=== PATIENT | male | born 1980 | race Caucasian/White ===

== ENCOUNTER → 2018-01-09 | Outpatient (CLI) | payer OTHER ==
--- NOTE | 2018-01-09 21:02 | XR ---
EXAMINATION TYPE: XR orbit detect foreign body DATE OF EXAM: 01/09/2018 COMPARISON: NONE HISTORY: MRI clearance TECHNIQUE: 3 views FINDINGS: There is no evidence of radiopaque foreign body. Orbital margins are intact. Paranasal sinu ses appear normal. IMPRESSION: Negative exam
== END | disposition home or self-care (01) ==
LOC: RADXRMAIN 18:07
PROVIDERS: ATTEND Family Medicine
DX: Z03.89 Encounter for observation for other suspected diseases and conditions ruled out (principal); M25.512 Pain in left shoulder
CPT/HCPCS: 70030

== ENCOUNTER → 2018-01-11 | Outpatient (CLI) | payer OTHER ==
--- NOTE | 2018-01-13 19:23 | MR ---
EXAMINATION TYPE: MR shoulder LT wo con DATE OF EXAM: 01/11/2018 COMPARISON: None HISTORY: Lt shoulder pain/arm numbness TECHNIQUE: Multiplanar, multisequence imaging of the left shoulder is performed without contrast. FINDINGS: Rotator Cuff: Small amount of fluid is within the subacromial bursa. The acromion is downward sloping which can contribute to impingement syndrome. No tendon or muscle retraction is evident. Muscle sign al appears normal couple small subchondral cysts on the posterior humeral head. No definite perforati on is identified. Acromioclavicular Joint: Hypertrophy. There is downward spurring at the acromioclavicular junction wh ich can contribute to impingement syndrome. Glenohumeral Joint: Intact. Labrum: There is some increased signal along the superior glenoid labrum is some internal derangement or a SLAP lesion could be considered. Biceps Tendon: The long head of biceps is in normal location within bicipital groove. Bone marrow signal: No focal abnormal marrow signal is appreciated. Other: No additional significant abnormality is appreciated. IMPRESSION: 1. Small amount of fluid in the subacromial bursa. No signal abnormality through the rotator cuff is evident suggesting moderate supraspinatus tendinosis most likely within the differential. Very small perforation is considered less likely. No complete tear with retraction is evident. 2. Signal abnormality within the superior glenoid labrum may be related to a SLAP lesion or degenerat bruce change.
== END | disposition home or self-care (01) ==
LOC: RADMRIMAIN 19:17
PROVIDERS: ATTEND Family Medicine
DX: R93.7 Abnormal findings on diagnostic imaging of other parts of musculoskeletal system (principal); M25.512 Pain in left shoulder

== ENCOUNTER → 2018-10-18 | Outpatient (CLI) | payer OTHER ==
[2018-10-18 12:37] LABS: Basophils # (A) 0.1 k/uL (0-0.2); Basophils % (A) 1 %; Eosinophils # (A) 0.1 k/uL (0-0.7); Eosinophils % (A) 2 %; HCT 53.3 % (39.0-53.0); HGB 17.5 gm/dL (13.0-17.5); Lymphocytes # (A) 1.9 k/uL (1.0-4.8); Lymphocytes % (A) 35 %; MCHC 32.8 g/dL (31.0-37.0); MCV 88.4 fL (80.0-100.0); Mean Platelet Volume 7.6; Monocytes # (A) 0.4 k/uL (0-1.0); Monocytes % (A) 7 %; Neutrophils # (A) 2.8 k/uL (1.3-7.7); Neutrophils % (A) 52 %; Platelet Count 190 k/uL (150-450); RBC 6.03 m/uL (4.30-5.90); RDW 15.2 % (11.5-15.5); WBC 5.3 k/uL (3.8-10.6)
[2018-10-18 12:44] LABS: Potassium 4.7 mmol/L (3.5-5.1)
== END | disposition home or self-care (01) ==
LOC: LABPAT 11:55
PROVIDERS: ATTEND Orthopaedic Surgery
DX: Z01.812 Encounter for preprocedural laboratory examination (principal); M75.42 Impingement syndrome of left shoulder
CPT/HCPCS: 36415; 80051; 85025

== ENCOUNTER 2018-11-07 05:35 | Day surgery (SDC) | payer OTHER ==
[2018-11-04 10:21] VITALS: BMI 32.8
--- NOTE | 2018-11-06 13:22 | HP ---
HISTORY AND PHYSICAL Surgery is 11/07/2018 Alberto Riley is a 38-year-old patient seen with progressive left shoulder pain. We discussed options for treatment. He elected to proceed with left shoulder arthroscopy. Consent regarding the procedure was obtained. PAST MEDICAL HISTORY: Noncontributory. PAST SURGICAL HISTORY: Ankle surgery . DAILY MEDICATIONS: None. ALLERGIES: None reported. SOCIAL HISTORY: Denies tobacco use. PHYSICAL EXAMINATION: PHYSICAL EVALUATION LEFT SHOULDER: Flexion is 90 degrees. Abduction is 90 degrees. External rotation is 40 degrees with pain and weakness. Tenderness along the anterolateral acromion and rotator cuff insertion site. Impingement is positive at 90 degrees. Distal neurovascular exam is intact Left shoulder radiographs revealed a type 2 anterior acromion, a downsloping anterior acromion and acromioclavicular joint osteoarthritis. Left shoulder MRI revealed a downsloping acromion and rotator cuff , acromioclavicular joint osteoarthritis and possible labral tear. IMPRESSION: Left shoulder impingement with possible labral tear, possible rotator cuff tear and acromioclavicular joint osteoarthritis. PLAN: Left shoulder arthroscopy with subacromial decompression, possible arthroscopic rotator cuff repair probable Maria T procedure and debridement. MMODL / IJN: [id number] /
[2018-11-07] MEDS ORDERED: DEXAMETHASONE SOD PHOSPHATE 10 MG/ML 1 ML VIAL IV ONE (05:48)
[2018-11-07] MEDS ORDERED: ONDANSETRON 4 MG/2 ML VIAL IVP ONE (05:48)
[2018-11-07] MEDS ORDERED: MIDAZOLAM 2 MG/2 ML VIAL IV PRN (05:48)
[2018-11-07] MEDS ORDERED: LACTATED RINGERS 1,000 ML IV SCH (05:48)
[2018-11-07] MEDS ORDERED: HYDROmorphone 0.5 MG/0.5 ML SYRINGE IVP PRN (05:48)
[2018-11-07] MEDS ORDERED: LIDOCAINE 1% 20 ML VIAL (10MG/ML) FOR IV START SQ ONE (06:17)
[2018-11-07] MEDS ORDERED: fentaNYL (PF) 50 MCG/ML 2 ML AMP IV ONE (06:57)
[2018-11-07] MEDS ORDERED: MIDAZOLAM (PF) 2 MG/2 ML VIAL IV ONE (06:57)
[2018-11-07] MEDS ORDERED: SCOPOLAMINE 1.5MG/72HR PATCH TRANSDERM ONE (07:20)
[2018-11-07] MEDS ORDERED: fentaNYL (PF) 50 MCG/ML 2 ML AMP ONE (07:21)
[2018-11-07] MEDS ORDERED: LIDOCAINE 1% INJ 10MG/ML (20 ML MDV) ONE (07:21)
[2018-11-07] MEDS ORDERED: PROPOFOL 10 MG/ML 20 ML VIAL IV ONE (07:21)
[2018-11-07] MEDS ORDERED: MIDAZOLAM 2 MG/2 ML VIAL ONE (07:21)
[2018-11-07] MEDS ORDERED: ROPIVACAINE 5 MG/ML 30 ML VIAL ONE (07:21)
[2018-11-07] MEDS ORDERED: SUCCINYLCHOLINE CHLORIDE 100 MG/5 ML SYR IV ONE (07:21)
--- NOTE | 2018-11-07 09:22 | P.OP ---
Date of Procedure: 11/07/18 Preoperative Diagnosis: Left shoulder impingement Postoperative Diagnosis: 1. Left shoulder rotator cuff tear 2. Left shoulder anterior labral tear 3. Left shoulder impingement Procedure(s) Performed: 1. Left shoulder arthroscopic rotator cuff repair 2. Left shoulder arthroscopic anterior labral repair 3. Left shoulder arthroscopic subacromial decompression Implants: 14.75mm Arthrex swivel lock anchor 12.9mm Arthrex push lock anchor Anesthesia: GETA, regional (Interscalene block/catheter) Surgeon: Parveen Park Privacy Analyst #1: Jason Diaz Estimated Blood Loss (ml): 10 Pathology: none sent Condition: stable Disposition: PACU Indications for Procedure: 38-year-old patient seen with progressive left shoulder pain. After treatment options were discussed with him, he elected to proceed with arthroscopy. Operative Findings: See description of procedure Description of Procedure: Patient underwent an interscalene block/catheter by department of anesthesia for postoperative pain management. The patient was then taken to the operative suite. The patient underwent a general anesthetic by the department of anesthesia. The patient was placed into a lateral position and secured. There was appropriate padding of the bony prominence. Left shoulder was then prepped and draped in normal sterile orthopedic fashion. We placed the extremity in 10 pounds of longitudinal traction. A posterior incision was now made for a posterior working portal site. The trocar and cannula were inserted into the glenohumeral joint. Arthroscopy was initiated. Spinal needle was now inserted anteriorly, to ascertain the anterior working portal site. An incision was now made in that area, a trocar was inserted followed by a probe. There was a anterior labral tear present. There was superficial fraying of the superior labrum with no complete tear present. Biceps tendon was intact. The glenohumeral joint revealed mild early chondromalacia changes. The posterior and inferior labrum were intact. I now introduced a catheter, anterior portal site. I now debrided that labral tear down to stable tissue. I now abraded the anterior glenoid with a motorized bur. I now passed labral tape through the blade of the anterior labrum. I held the drill guide in position and Ricardo LOPEZ drill the co pilot hole for our labral anchor insertion. We now open a Arthrex 2.9 mm push lock anchor. The labral tape was now passed through the eyelet. The eye was now introduced to her pre-punch hole. I held that eyelet in position on the chelsea LOPEZ tension the sutures and now introduced the push lock anchor. It had good bite and purchase. The residual suture limbs were clipped. We had a good stable anterior labral repair at this point. I debrided the superior labral fraying down to stable tissue. The labral repair was now probed and found to be stable. Instruments and cannula were now removed. Utilizing the posterior working portal site, the trocar and cannula were inserted into the subacromial space. Arthroscopy initiated. I made an incision 2 fingerbreadths lateral to the acromion. I introduced my trocar followed by my ArthroCare ablator. I now began ablating thick subacromial bursal tissue, which exposed the undersurface of the anterior acromion. There was diminished subacromial space. There was a very prominent anterior acromion. A motorized bur was introduced and a subacromial decompression was performed. I also excised some osteophytes off the inferior aspect of the distal clavicle. The AC joint was visualized and noted to be moderately arthritic. I did not think enough toward a Maria T procedure. I now noted some superficial tearing of the rotator cuff tendon. Upon probing the area there was a full-thickness perforation along the distal supraspinatus midbody area. I used a motorized shaver to get down to stable tendon tissue. I used a motorized bur to abrade the footprint. I now passed 2 everted mattress sutures through good bites of rotator cuff tendon. I now punched a hole for anchor insertion into our abraded footprint area. I now chose a Arthrex 4.75 swivel lock anchor. The suture limbs were passed through the eyelet. The eyelet was introduced into her pre-punch hole. I held the eyelet in position along the chelsea LOPEZ tension the sutures and introduced our anchor. We noted good purchase of the anchor. This did compress the tendon along the footprint. All residual suture limbs were now clipped. We had good compression of the tendon along the footprint. I injected 1 mL Renyte intra- articular. Instruments now removed from the portal sites. All portal sites were approximated with nylon suture. Sterile dressings were applied followed by a shoulder immobilizer. Jason LOPEZ assisted in this complex case. The patient was awakened, transferred to a bed, and taken to recovery in stable condition.
[2018-11-07 09:25] VITALS: TEMP 97.2
[2018-11-07] MEDS ORDERED: ROPIVACAINE 0.2%-NS ON-Q PUMP 1,090 MG, EMPTY PAIN BALL 1 EACH MISCELLANE PRN (09:26)
--- NOTE | 2018-11-07 09:29 | P.ANPRN ---
Procedure Note - Anesthesia - Nerve Block Performed Left Interscalene Infusion Time Out Performed: Yes Date of Procedure: 11/07/18 Procedure Start Time: 06:56 Procedure Stop Time: 07:07 Location of Patient Procedure: PreOp Indication: Acute Post-Operative Pain, Requested by physician Sedation Type: Sedate with meaningful contact maintained Preparation: Sterile Prep, Sterile Dressing Position: Sitting Catheter Depth at Skin (cm): 5 Catheter: Indwelling Needle Types: On-Q Needle Gauge: 18 Technique: Ultrasound Injectate: 0.5% Ropivacaine (see comment for volume) (20 ml)
[2018-11-07 10:11] VITALS: RESP 18
[2018-11-07 11:39] VITALS: BP 129/86; PULSE 64
== END 2018-11-07 11:50 | disposition home or self-care (01) ==
LOC: OR 05:35
PROVIDERS: ATTEND Orthopaedic Surgery
DX: M75.102 Unspecified rotator cuff tear or rupture of left shoulder, not specified as traumatic (principal); S43.432A Superior glenoid labrum lesion of left shoulder, initial encounter; X58.XXXA Exposure to other specified factors, initial encounter; M75.42 Impingement syndrome of left shoulder; M94.212 Chondromalacia, left shoulder; M25.712 Osteophyte, left shoulder
CPT/HCPCS: 64415; 29826; 29827; C1713 ×3; C1765; J2250 ×2; J1100; J0690; J2405; J2001; J3010; J2795; J0330; J2704

== ENCOUNTER → 2019-02-07 | Outpatient (CLI) | payer OTHER ==
[2019-02-07 15:06] LABS: Basophils % (A) 1 %; Eosinophils # (A) 0.2 k/uL (0-0.7); Eosinophils % (A) 3 %; HCT 47.4 % (39.0-53.0); Lymphocytes # (A) 2.1 k/uL (1.0-4.8); Lymphocytes % (A) 32 %; MCHC 33.7 g/dL (31.0-37.0); MCV 91.8 fL (80.0-100.0); Mean Platelet Volume 6.7; Monocytes # (A) 0.4 k/uL (0-1.0); Monocytes % (A) 6 %; Neutrophils # (A) 3.7 k/uL (1.3-7.7); Neutrophils % (A) 56 %; Platelet Count 230 k/uL (150-450); RBC 5.16 m/uL (4.30-5.90); RDW 13.4 % (11.5-15.5); WBC 6.6 k/uL (3.8-10.6)
[2019-02-07 16:14] LABS: Erythrocyte Sedimentation Rate 8 mm/hr (0-15)
[2019-02-07 18:26] LABS: African American GFR (CKD) 99.6 (60.0-200.0); Albumin 4.3 g/dL (3.80-4.90); Albumin/Globulin Ratio 2.05 (1.60-3.17); Anion Gap 7.4 mmol/L (4.00-12.00); BUN/Creat Ratio 17.27 Ratio (12.00-20.00); C Reactive Protein 0.4 mg/dL (0.0-0.8); Calcium 9.2 mg/dL (8.7-10.3); Carbon Dioxide 25.6 mmol/L (21.6-31.8); Globulin 2.1 g/dL (1.6-3.3); Potassium 4.6 mmol/L (3.5-5.5); Total Bilirubin 0.8 mg/dL (0.3-1.2); Total Protein 6.4 g/dL (6.2-8.2)
== END ==
LOC: LABWHC1 14:17
PROVIDERS: ATTEND Internal Medicine
DX: K51.20 Ulcerative (chronic) proctitis without complications (principal)
CPT/HCPCS: 36415; 80053; 82306; 85025; 85652; 86140

== ENCOUNTER → 2019-05-23 | Outpatient (CLI) | payer OTHER ==
[2019-05-23 16:29] LABS: Basophils # (A) 0.1 k/uL (0-0.2); Basophils % (A) 1 %; Eosinophils # (A) 0.2 k/uL (0-0.7); Eosinophils % (A) 3 %; HCT 50.9 % (39.0-53.0); HGB 16.7 gm/dL (13.0-17.5); Lymphocytes # (A) 1.8 k/uL (1.0-4.8); Lymphocytes % (A) 26 %; MCH 27.5 pg (25.0-35.0); MCHC 32.7 g/dL (31.0-37.0); Mean Platelet Volume 8.2; Monocytes # (A) 0.5 k/uL (0-1.0); Monocytes % (A) 7 %; Neutrophils # (A) 4.4 k/uL (1.3-7.7); Neutrophils % (A) 61 %; Platelet Count 239 k/uL (150-450); RBC 6.06 m/uL (4.30-5.90); RDW 13.6 % (11.5-15.5); WBC 7.2 k/uL (3.8-10.6)
[2019-05-23 17:11] LABS: Erythrocyte Sedimentation Rate 8 mm/hr (0-15)
[2019-05-24 00:49] LABS: ALT 44 U/L (10-49); AST 42 U/L (14-35); African American GFR (CKD) 74.4 (60.0-200.0); Albumin/Globulin Ratio 1.96 (1.60-3.17); Alkaline Phosphatase 68 U/L (41-126); C Reactive Protein <0.4 mg/dL (0.0-0.8); Calcium 9.2 mg/dL (8.7-10.3); Carbon Dioxide 26.9 mmol/L (21.6-31.8); Chloride 104 mmol/L (96-109); Globulin 2.3 g/dL (1.6-3.3); Glucose 93 mg/dL (70-110); Non-African American GFR(CKD) 64.2 (60.0-200.0); Potassium 4.3 mmol/L (3.5-5.5); Sodium 140 mmol/L (135-145); Total Bilirubin 1.1 mg/dL (0.3-1.2); Total Protein 6.8 g/dL (6.2-8.2)
[2019-05-24 00:57] LABS: Hepatitis B Surface AB- Quant 3.5 mIU/mL; Hepatitis B Surface Antibody Non-Reactive (Non-Reactive); Hepatitis B Surface Antigen Non-Reactive (Non-Reactive)
== END | disposition home or self-care (01) ==
LOC: LABWHC1 15:15
PROVIDERS: ATTEND Internal Medicine
DX: K51.90 Ulcerative colitis, unspecified, without complications (principal)
CPT/HCPCS: 36415; 80053; 82306; 85025; 85652; 86140; 86480; 86704; 86706; 87340

== ENCOUNTER 2019-06-04 06:28 | Emergency (ER) | payer OTHER ==
[2019-06-04 06:38] VITALS: RESP 18; TEMP 98.6
[2019-06-04] MEDS ORDERED: SODIUM CHLORIDE 0.9% 500 ML 500 ML IV STA (06:57)
[2019-06-04] MEDS ORDERED: MORPHINE SULFATE 4 MG/ML SYRINGE IVP STA (07:34)
[2019-06-04] MEDS ORDERED: ASPIRIN 81 MG PO STA (07:34)
--- NOTE | 2019-06-04 07:41 | ED ---
General Adult HPI - General Chief complaint: Chest Pain Stated complaint: Chest Pain Time Seen by Provider: 06/04/19 06:45 Source: patient, RN notes reviewed Mode of arrival: ambulatory Limitations: no limitations - History of Present Illness Initial comments: 48-year-old male presents to the emergency department for a chief complaint of chest pain. Patient states he has had left-sided chest pain for the past 4 days. Patient states he noticed this when he was leaving the gym. Patient states that pain worsens with taking a deep breath. States that pain gets better when he holds pressure over the area on the left side of the chest. He does not feel short of breath but does have pain upon deep inspiration. Patient denies cough. Denies any recent travel. Denies any swelling or pain in the calves or legs. Denies any history of blood clots. Patient denies any cardiac history.Patient has no other complaints at this time including shortness of breath, abdominal pain, nausea or vomiting, headache, or visual changes. - Related Data Home Medications Medication Instructions Recorded Confirmed [place]-3 Fatty Acids/Fish Oil [Fish 1 cap PO TID 06/04/19 06/04/19 Oil 1,000 mg Softgel] Allergies Allergy/AdvReac Type Severity Reaction Status Date / Time mesalamine Allergy Rash/Hives Verified 06/04/19 07:59 niacin Allergy Rash/Hives Verified 06/04/19 07:59 Review of Systems ROS Statement: Those systems with pertinent positive or pertinent negative responses have been documented in the HPI. ROS Other: All systems not noted in ROS Statement are negative. Past Medical History Past Medical History: Asthma History of Any Multi-Drug Resistant Organisms: None Reported Additional Past Surgical History / Comment(s): left shoulder surgery Past Psychological History: No Psychological Hx Reported Smoking Status: Never smoker Past Alcohol Use History: None Reported Past Drug Use History: None Reported General Exam Limitations: no limitations General appearance: alert, in no apparent distress Head exam: Present: atraumatic, normocephalic, normal inspection Eye exam: Present: normal appearance, PERRL, EOMI. Absent: scleral icterus, conjunctival injection, periorbital swelling ENT exam: Present: normal exam, mucous membranes moist Neck exam: Present: normal inspection, full ROM. Absent: tenderness, meningismus, lymphadenopathy Respiratory exam: Present: normal lung sounds bilaterally. Absent: respiratory distress, wheezes, rales, rhonchi, stridor Cardiovascular Exam: Present: regular rate, normal rhythm, normal heart sounds. Absent: systolic murmur, diastolic murmur, rubs, gallop, clicks GI/Abdominal exam: Present: soft, normal bowel sounds. Absent: distended, tenderness, guarding, rebound, rigid Neurological exam: Present: alert Course Vital Signs 06/04/19 06/04/19 06:36 08:00 Temperature 98.6 F Pulse Rate 78 80 Respiratory 18 18 Rate Blood Pressure 149/79 127/67 O2 Sat by Pulse 98 Oximetry EKG Findings - EKG Comments: EKG Findings:: Normal sinus rhythm, ventricular rate 70, SD interval 126, QTc 399 Medical Decision Making - Medical Decision Making Vitals are stable. Patient states he has pain when breathing. This happened after he worked out at the gym. Patient states that pressing on the left anterior chest where the pain is improved his pain and allows him to take a deep breath. EKG showed a normal sinus rhythm without evidence of ST elevation or depression. CBC CMP unremarkable. Troponin negative. D-dimer is within normal limits. Chest x-ray shows no acute pulmonary process. I suspect this is secondary to a musculoskeletal cause given improvement when splinting the area. Patient was given pain medication which did help significantly. Patient will follow up with primary care. He will return with any worsening symptoms. Discussed case with Dr Benoit - Lab Data Result diagrams: 06/04/19 07:22 06/04/19 07:22 Lab Results 06/04/19 06/04/19 06/04/19 Range/Units 07:22 07:22 07:22 WBC 7.3 (3.8-10.6) k/uL RBC 6.06 H (4.30-5.90) m/uL Hgb 16.2 (13.0-17.5) gm/dL Hct 49.9 (39.0-53.0) % MCV 82.3 (80.0-100.0) fL MCH 26.7 (25.0-35.0) pg MCHC 32.4 (31.0-37.0) g/dL RDW 14.3 (11.5-15.5) % Plt Count 210 (150-450) k/uL Neutrophils % 72 % Lymphocytes % 18 % Monocytes % 7 % Eosinophils % 2 % Basophils % 0 % Neutrophils # 5.2 (1.3-7.7) k/uL Lymphocytes # 1.3 (1.0-4.8) k/uL Monocytes # 0.5 (0-1.0) k/uL Eosinophils # 0.1 (0-0.7) k/uL Basophils # 0.0 (0-0.2) k/uL PT 10.2 (9.0-12.0) sec INR 1.0 (<1.2) APTT 25.0 (22.0-30.0) sec D-Dimer 0.27 (<0.60) mg/L FEU Sodium 138 (137-145) mmol/L Potassium 4.5 (3.5-5.1) mmol/L Chloride 106 (98-107) mmol/L Carbon Dioxide 25 (22-30) mmol/L Anion Gap 7 mmol/L BUN 17 (9-20) mg/dL Creatinine 1.13 (0.66-1.25) mg/dL Est GFR (CKD-EPI)AfAm >90 (>60 ml/min/1.73 sqM) Est GFR (CKD-EPI)NonAf 84 (>60 ml/min/1.73 sqM) Glucose 108 H (74-99) mg/dL Calcium 9.1 (8.4-10.2) mg/dL Magnesium 1.6 (1.6-2.3) mg/dL Total Bilirubin 0.9 (0.2-1.3) mg/dL AST 43 (17-59) U/L ALT 42 (4-49) U/L Alkaline Phosphatase 53 (38-126) U/L Troponin I (0.000-0.034) ng/mL Total Protein 7.1 (6.3-8.2) g/dL Albumin 4.0 (3.5-5.0) g/dL 06/04/19 Range/Units 07:22 WBC (3.8-10.6) k/uL RBC (4.30-5.90) m/uL Hgb (13.0-17.5) gm/dL Hct (39.0-53.0) % MCV (80.0-100.0) fL MCH (25.0-35.0) pg MCHC (31.0-37.0) g/dL RDW (11.5-15.5) % Plt Count (150-450) k/uL Neutrophils % % Lymphocytes % % Monocytes % % Eosinophils % % Basophils % % Neutrophils # (1.3-7.7) k/uL Lymphocytes # (1.0-4.8) k/uL Monocytes # (0-1.0) k/uL Eosinophils # (0-0.7) k/uL Basophils # (0-0.2) k/uL PT (9.0-12.0) sec INR (<1.2) APTT (22.0-30.0) sec D-Dimer (<0.60) mg/L FEU Sodium (137-145) mmol/L Potassium (3.5-5.1) mmol/L Chloride (98-107) mmol/L Carbon Dioxide (22-30) mmol/L Anion Gap mmol/L BUN (9-20) mg/dL Creatinine (0.66-1.25) mg/dL Est GFR (CKD-EPI)AfAm (>60 ml/min/1.73 sqM) Est GFR (CKD-EPI)NonAf (>60 ml/min/1.73 sqM) Glucose (74-99) mg/dL Calcium (8.4-10.2) mg/dL Magnesium (1.6-2.3) mg/dL Total Bilirubin (0.2-1.3) mg/dL AST (17-59) U/L ALT (4-49) U/L Alkaline Phosphatase (38-126) U/L Troponin I <0.012 (0.000-0.034) ng/mL Total Protein (6.3-8.2) g/dL Albumin (3.5-5.0) g/dL Disposition Clinical Impression: Atypical chest pain Disposition: HOME SELF-CARE Condition: Good Instructions (If sedation given, give patient instructions): Chest Pain (ED), Costochondritis (ED) Additional Instructions: Please take Motrin and Tylenol for pain. Please follow-up with primary care in 1-2 days. Return to the emergency Department if you have any worsening symptoms. Is patient prescribed a controlled substance at d/c from ED?: No Referrals: Ivory Callaway MD [STAFF PHYSICIAN] - 1-2 days Time of Disposition: 08:25
[2019-06-04 07:48] LABS: ALT 42 U/L (4-49); AST 43 U/L (17-59); African American GFR (CKD) >90 (>60 ml/min/1.73 sqM); Alkaline Phosphatase 53 U/L (38-126); Anion Gap 7 mmol/L; Blood Urea Nitrogen 17 mg/dL (9-20); Calcium 9.1 mg/dL (8.4-10.2); Carbon Dioxide 25 mmol/L (22-30); Chloride 106 mmol/L (98-107); Glucose 108 mg/dL (74-99); Magnesium 1.6 mg/dL (1.6-2.3); Non-African American GFR(CKD) 84 (>60 ml/min/1.73 sqM); Potassium 4.5 mmol/L (3.5-5.1); Sodium 138 mmol/L (137-145); Total Bilirubin 0.9 mg/dL (0.2-1.3); Total Protein 7.1 g/dL (6.3-8.2)
[2019-06-04 08:01] LABS: Basophils % (A) 0 %; Eosinophils # (A) 0.1 k/uL (0-0.7); Eosinophils % (A) 2 %; HCT 49.9 % (39.0-53.0); HGB 16.2 gm/dL (13.0-17.5); Lymphocytes # (A) 1.3 k/uL (1.0-4.8); Lymphocytes % (A) 18 %; MCH 26.7 pg (25.0-35.0); MCHC 32.4 g/dL (31.0-37.0); MCV 82.3 fL (80.0-100.0); Mean Platelet Volume 8.1; Monocytes # (A) 0.5 k/uL (0-1.0); Monocytes % (A) 7 %; Neutrophils # (A) 5.2 k/uL (1.3-7.7); Neutrophils % (A) 72 %; Platelet Count 210 k/uL (150-450); RBC 6.06 m/uL (4.30-5.90); RDW 14.3 % (11.5-15.5); WBC 7.3 k/uL (3.8-10.6)
--- NOTE | 2019-06-04 08:06 | XR ---
EXAMINATION TYPE: XR chest 2V DATE OF EXAM: 06/04/2019 COMPARISON: None INDICATION: Chest pain on the left rib pain TECHNIQUE: Frontal and lateral views of the chest are obtained. FINDINGS: The heart size is normal. The pulmonary vasculature is normal. The lungs are clear. No pneumothorax is evident. Osseous structures appear normal IMPRESSION: 1. No acute pulmonary process.
[2019-06-04 08:11] LABS: D-Dimer 0.27 mg/L FEU (<0.60); Prothrombin Time 10.2 sec (9.0-12.0)
[2019-06-04] MEDS ORDERED: KETOROLAC 30 MG/ML 1 ML VIAL IVP STA (08:26)
[2019-06-04 08:50] VITALS: BP 104/59; PULSE 64
== END 2019-06-04 08:50 | disposition home or self-care (01) ==
LOC: EC 06:28 → MERGE 06:28 → EC 08:50
DX: R07.89 Other chest pain (principal); Z88.8 Allergy status to other drugs, medicaments and biological substances
CPT/HCPCS: 36415; 93005; 85379; 80053; 83735; 84484; 85025; 85610; 85730; 71046; 99285; 96374; 96375; J2270; J1885

== ENCOUNTER → 2019-12-15 | Outpatient (CLI) | payer OTHER | END | disposition home or self-care (01) | LOC: LABWHC1 12:46 | PROVIDERS: ATTEND Internal Medicine | DX: K51.90 Ulcerative colitis, unspecified, without complications (principal) | CPT/HCPCS: 36415; 82542; 82657 ==

== ENCOUNTER 2021-09-23 08:04 | Day surgery (SDC) | payer BC ==
[2021-09-21 15:29] VITALS: BMI 30.9
[~2021-09-23 08:04] MED LIST: LACTATED RINGERS 1,000 ML IV SCH; LIDOCAINE 1% (10MG/ML) FOR IV START INTRADERMA PRN
[2021-09-23 08:55] VITALS: TEMP 97.7
[2021-09-23] MEDS ORDERED: PROPOFOL 10 MG/ML 20 ML VIAL IV ONE (09:48)
[2021-09-23] MEDS ORDERED: LIDOCAINE 2% INJ 20 MG/ML (2 ML VIAL) ONE (09:48)
[2021-09-23] MEDS ORDERED: MIDAZOLAM 2 MG/2 ML VIAL ONE (09:48)
--- NOTE | 2021-09-23 10:13 | P.PCN ---
Date of Procedure: 09/23/21 Procedure(s) Performed: BRIEF HISTORY: Patient is a 41-year-old pleasant white male scheduled for an elective colonoscopy as a part of long-standing history of ulcerative colitis diagnosed in 2012. He is currently maintained on Humira every 2 weeks centimeters in clinical remission. PROCEDURE PERFORMED: Colonoscopy with random biopsy. PREOPERATIVE DIAGNOSIS: Normal-appearing history of ulcerative colitis diagnosed in 2012. IV sedation per Anesthesia. PROCEDURE: After informed consent was obtained, the patient, was brought into the endoscopy unit. IV sedation was administered by Anesthesia under continuous monitoring. Digital rectal examination was normal. Initially the Olympus CF-160 flexible video colonoscope was then inserted in the rectum, gradually advanced into the cecum without any difficulty. Careful examination was performed as the scope was gradually being withdrawn. Ileocecal valve and the appendiceal orifice were visualized and appeared normal. Prep was excellent. Mucosa of the cecum, ascending colon, transverse colon, descending colon, sigmoid colon, and rectum appeared normal. Biopsies were done from the cecum to rule out dysplasia. Retroflexion was performed in the rectum and all internal hemorrhoids were seen. The patient tolerated the procedure well. IMPRESSION: Normal-appearing colon from rectum to cecum with no evidence of active colitis or colorectal neoplasia . Small internal hemorrhoids. RECOMMENDATIONS: Findings of this examination were discussed with the patient as well as his family. He was advised to follow with the biopsy results. If there is evidence of dysplasia he can have a repeat colonoscopy in 2 years..
[2021-09-23 10:22] VITALS: PULSE 64
[2021-09-23 11:11] VITALS: BP 133/70; RESP 20
== END 2021-09-23 11:05 | disposition home or self-care (01) ==
LOC: ORWHC2ENDO 08:04
PROVIDERS: ATTEND Internal Medicine Gastroenterology
DX: K51.90 Ulcerative colitis, unspecified, without complications (principal); K64.8 Other hemorrhoids; Z79.1 Long term (current) use of non-steroidal anti-inflammatories (NSAID); Z88.8 Allergy status to other drugs, medicaments and biological substances; Z79.890 Hormone replacement therapy
CPT/HCPCS: 88305; 45380; J2250; J2704; J2001

== ENCOUNTER → 2021-11-07 | Outpatient (CLI) | payer BC ==
[2021-11-07 15:38] LABS: Basophils # (A) 0.04 X 10*3/uL (0.00-0.10); Basophils % (A) 0.6 %; Eosinophils # (A) 0.21 X 10*3/uL (0.04-0.35); Eosinophils % (A) 3.2 %; HCT 51.3 % (39.6-50.0); HGB 17.5 g/dL (13.0-17.0); Immature Grans, Automated 0.5 %; Lymphocytes # (A) 2.15 X 10*3/uL (0.90-5.00); MCHC 34.1 g/dL (32.0-37.0); MCV 87.8 fL (80.0-97.0); Mean Platelet Volume 10.6 fL (9.5-12.2); Monocytes # (A) 0.61 X 10*3/uL (0.20-1.00); Monocytes % (A) 9.4 %; NRBC Per 100 WBC 0 /100 WBCS (0.0-0.0); Neutrophils # (A) 3.48 X 10*3/uL (1.80-7.70); Neutrophils % (A) 53.3 %; Platelet Count 214 X 10*3/uL (140-440); RBC 5.84 X 10*6/uL (4.40-5.60); RDW 12.6 % (11.5-14.5); WBC 6.52 X 10*3/uL (4.50-10.00)
[2021-11-07 16:05] LABS: Anion Gap 11.4 mmol/L (10.00-18.00); Potassium 4.1 mmol/L (3.5-5.5)
== END | disposition home or self-care (01) ==
LOC: LABPAT 09:01
PROVIDERS: ATTEND Orthopaedic Surgery Hand Surgery
DX: Z01.812 Encounter for preprocedural laboratory examination (principal); G56.01 Carpal tunnel syndrome, right upper limb
CPT/HCPCS: 80051; 85025

== ENCOUNTER 2021-11-09 12:20 | Day surgery (SDC) | payer BC ==
--- NOTE | 2021-11-07 09:38 | P.HPOR ---
History of Present Illness H&P Date: 11/07/21 Chief Complaint: Right carpal tunnel syndrome ubjective: This is a 41 year old male that presents today for initial evaluation regarding a several year history of worsening thumb index and middle finger paresthesias. He works as a second class welder and states his right hand is worse than the left. He has symptoms that wake him from sleep at night. He has tried night splinting which no longer provides relief. He also has left lateral elbow pain that radiates luís n the dorsal forearm that is worse with wrist extension. He denies any injury or inciting event and likes to power lift. Physical Examination: RUE: AIN/PIN/Radial/Ulnar/Median motor intact. Radial/Ulnar/Median SILT. 2+/4 Radial/Ulnar pulses palpated. 5/5 APB, 5/5 FDI. Negative Finkelsteins, negative CMC grind, positive Durkan's compression. LUE: AIN/PIN/Radial/Ulnar/Median motor intact. Radial/Ulnar/Median SILT. 2+/4 Radial/Ulnar pulses palpated. 5/5 APB, 5/5 FDI. Negative Finkelsteins, negative CMC grind, positive Durkan's compression. TTP over ECRB and lateral epicondyle. Pain with resisted wrist extension at lateral epicondyle. Elbow ROM 0-130. Stable to varus/valgus stress. Imaging: X-Rays of the left elbow demonstrate no acute osseous abnormality. Impression: 1.) B/L Carpal tunnel syndrome 2.) Left lateral epicondylitis Plan: Diagnosis and treatment options were discussed with the patient. He as failed conservative treatment for his right carpal tunnel syndrome and would like to proceed with surgical intervention. Risks and benefits of surgery including bleeding, infection, damage to surrounding tissue, need for further surgery, possible need to convert to open procedure, residual numbness were discussed and the patient wished to go forward with surgery. In regard to his left lateral epicondylitis I recommend a wrist splint in combination with a steroid injection and he his agreeable. Written procedural consent was obtained prior to inject ion. A 2cc mixture of 1% Lidocaine and Depomedrol was injected into the area of the lateral epicondyle near the ECRB origin without complication. Band-Aid was placed and the patient tolerated the procedure well. He will be scheduled for a right endoscopic vs open carpal tunnel release in the near future. -Wang Nolasco DO Orthopedic Hand/Upper Extremity Surgeon Past Medical History Past Medical History: Asthma Additional Past Medical History / Comment(s): ULCERATIVE COLITIS History of Any Multi-Drug Resistant Organisms: None Reported Past Surgical History: Orthopedic Surgery Additional Past Surgical History / Comment(s): left shoulder surgery. ORIF LT ANKLE. COLONOSCOPY Past Anesthesia/Blood Transfusion Reactions: No Reported Reaction Smoking Status: Never smoker - Past Family History Mother Family Medical History: No Reported History Medications and Allergies Home Medications Medication Instructions Recorded Confirmed Type Adalimumab [Humira Pen 40 mg SQ Q14D 09/21/21 09/23/21 History Crohn's-Uc-Hs] Lisdexamfetamine Dimesylate 50 mg PO QAM 09/21/21 09/23/21 History [Vyvanse] Testosterone Cypionate 200 mg IM Q14D 09/21/21 09/23/21 History [Depo-Testosterone] Allergies Allergy/AdvReac Type Severity Reaction Status Date / Time mesalamine Allergy Rash/Hives Verified 09/23/21 08:49 niacin Allergy Rash/Hives Verified 09/23/21 08:49 Physical Examination Osteopathic Statement: *. No significant issues noted on an osteopathic structural exam other than those noted in the History and Physical/Consult.
[2021-11-07 15:36] VITALS: BMI 31.1
[~2021-11-09 12:20] MED LIST changes: +Pre Op ABX Message 1 EACH MISC MISCELLANE ONE
[2021-11-09 12:34] VITALS: TEMP 97.9
[2021-11-09] MEDS ORDERED: ONDANSETRON 4 MG/2 ML VIAL ONE (12:36)
[2021-11-09] MEDS ORDERED: DEXAMETHASONE SOD PHOSPHATE 4 MG/ML 1 ML VIAL IVP ONE (12:43)
[2021-11-09] MEDS ORDERED: ONDANSETRON 4 MG/2 ML VIAL IVP ONE (12:43)
[2021-11-09] MEDS ORDERED: BUPIVACAIN-EPI 0.5%-1:200,000 30 ML VIAL SQ ONE ×3 (13:42→13:52)
[2021-11-09] MEDS ORDERED: LIDOCAINE 1% INJ 10MG/ML (20 ML MDV) SQ ONE ×3 (13:42→13:52)
[2021-11-09] MEDS ORDERED: MIDAZOLAM 2 MG/2 ML VIAL ONE (13:44)
[2021-11-09] MEDS ORDERED: PROPOFOL 10 MG/ML 20 ML VIAL IV ONE (13:44)
[2021-11-09] MEDS ORDERED: fentaNYL (PF) 50 MCG/ML 2 ML AMP ONE (13:44)
--- NOTE | 2021-11-09 14:17 | P.OP ---
Date of Procedure: 11/09/21 Preoperative Diagnosis: Right carpal tunnel syndrome Postoperative Diagnosis: Right carpal tunnel syndrome Procedure(s) Performed: Right endoscopic carpal tunnel release Anesthesia: MAC Surgeon: Wang Nolasco Resin Filterer #1: Roger Kearney Estimated Blood Loss (ml): 0 Pathology: none sent Condition: stable Disposition: PACU Description of Procedure: This is a 41 year old male who presents today for a right endoscopic carpal tunnel release after having failed conservative treatment in the past. Risks and benefits of surgery were discussed with the patient including bleeding, damage to surrounding tissue, infection, need to convert to open procedure, need for further surgery as well as risks of anesthesia including pulmonary embolism and even and the patient wished to proceed with surgical intervention. The patients was seen in the pre-operative area by myself. Consent and H&P were completed and updated. The correct extremity was marked in the pre-operative area by myself and all other questions were answered. Operative Narrative: The patient was brought to the operating room by the department of anesthesia. They remained on the portable stretcher and a rolling hand table was brought to the side of the operative extremity. Pre-operative time out was performed indicating the correct patient, procedure and laterality. All in the room agreed. The patient was then drifted off to sleep by the department of anes thesia. MAC anesthesia was utilized and a 50:50 mixture of 1% Lidocaine and 0.5% bupivacaine was injected into the subcutaneous tissues of the palmar skin, 6ccs total. A nonsterile tourniquet was then applied to the operative extremity and the right upper extremity was then prepped and draped in normal sterile fashion. The operative extremity was the exsanguinated with an esmarch bandage and the tourniquet was inflated to 250mmHg. 15 blade scalpel was utilized to make a transverse incision on the palmar skin just ulnar to the palmaris longus tendon at the level of the distal wrist crea se. Ragnell retractor was then placed radially and blunt dissection was performed to reveal the distal forearm fascia. This was lifted with fine Alfredo pick ups and Littler tenotomy scissors were then used to open the forearm fascia transversely and a double skin hook was then placed. Hamate finder was placed into the carpal tunnel and then sequential sized dilators were inserted followed by the synovial elevator to separate the flexor tenosynovium from the undersurface of the transverse carpal ligament and a washboard texture was felt. The MicroAire endoscopic carpal tunnel release system gun was the then inserted into the carpal tunnel hugging the deep portion of the transverse carpal ligament in line with the base of the ring finger. Transverse fibers of the ligament were directly visualized. Pressure was applied on the palm to reveal the distal extent of the transverse carpal ligament. The blade was then deployed and the distal half of the transverse carpal ligament was released. The scope was then brought distal again and remaining transverse fibers were incised with the blade. The proximal half of the transverse carpal ligament was then divided and again the scope was advanced distal and remaining transverse fibers were incised with the blade. The radial and ulnar leaflets were directly visualized and mobile consistent with complete release. Tenotomy scissors were then u tilized to release the remaining distal forearm fascia under direct visualization taking care to preserve the palmar cutaneous branch of the median nerve. Skin closure was performed with interrupted 4-0 Monocryl suture followed by Mastisol and steri strips. Sterile dressing was applied consisting of adaptic, 4x4s, Webril, and an eleni bandage. Tourniquet was let down and the hand immediately was well perfused. The patient was then woken by the department of anesthesia and transferred to PACU in stable condition. Rgoer LOPEZ was present for the case in its entirety and assisted in major portions of the case and protection of vital neurovascular structures. Wang Nolasco D.O. Orthopedic Hand/Upper Extremity Surgeon
[2021-11-09 14:27] VITALS: BP 115/66; PULSE 74; RESP 14
== END 2021-11-09 14:47 | disposition home or self-care (01) ==
LOC: OR 12:20
PROVIDERS: ATTEND Orthopaedic Surgery Hand Surgery
DX: G56.01 Carpal tunnel syndrome, right upper limb (principal); M77.12 Lateral epicondylitis, left elbow; J45.909 Unspecified asthma, uncomplicated; K51.90 Ulcerative colitis, unspecified, without complications; Z98.890 Other specified postprocedural states; Z79.1 Long term (current) use of non-steroidal anti-inflammatories (NSAID); Z79.890 Hormone replacement therapy; Z79.899 Other long term (current) drug therapy; Z88.8 Allergy status to other drugs, medicaments and biological substances
CPT/HCPCS: 29848; J2250; J1100; J2405; J2001; J3010; J2704

== ENCOUNTER 2024-08-18 09:52 | Emergency (ER) | payer BC ==
[2024-08-18 09:56] VITALS: TEMP 97.8
[2024-08-18] MEDS: MORPHINE SULFATE 4 MG/ML SYRINGE IVP STA ×2 (10:30→13:06)
[2024-08-18] MEDS: ONDANSETRON 4 MG/2 ML VIAL IVP STA (10:30)
[2024-08-18] MEDS: SODIUM CHLORIDE 0.9% 1,000 ML IV ONE (10:31)
[2024-08-18 10:39] LABS: Basophils # (A) 0.05 10*3/uL (0.00-0.10); Basophils % (A) 0.7 %; Eosinophils # (A) 0.11 10*3/uL (0.04-0.35); Eosinophils % (A) 1.5 %; HCT 52.1 % (39.6-50.0); HGB 18.9 g/dL (13.0-17.0); Lymphocytes # (A) 2.02 10*3/uL (0.90-5.00); Lymphocytes % (A) 27.7 %; MCH 31.3 pg (27.0-32.0); MCHC 36.3 g/dL (32.0-37.0); MCV 86.4 fL (80.0-97.0); Mean Platelet Volume 9.9 fL (9.5-12.2); Monocytes # (A) 0.66 10*3/uL (0.20-1.00); Monocytes % (A) 9.1 %; Neutrophils # (A) 4.43 10*3/uL (1.80-7.70); Neutrophils % (A) 60.7 %; Platelet Count 230 10*3/uL (140-440); RBC 6.03 10*6/uL (4.40-5.60); WBC 7.29 10*3/uL (4.50-10.00)
[2024-08-18 10:50] LABS: INR 1.1 (<1.2); Partial Thromboplastin Time 24.9 sec (22.0-30.0); Prothrombin Time 11.8 sec (10.0-12.5)
[2024-08-18 10:51] LABS: ALT 70 U/L (4-49); AST 59 U/L (17-59); African American GFR (CKD) >90 (>60 ml/min/1.73 sqM); Albumin 4.3 g/dL (3.5-5.0); Alkaline Phosphatase 53 U/L (38-126); Anion Gap 7 mmol/L; Blood Urea Nitrogen 23 mg/dL (9-20); Calcium 9.3 mg/dL (8.4-10.2); Carbon Dioxide 27 mmol/L (22-30); Chloride 103 mmol/L (98-107); Glucose 102 mg/dL (74-99); Non-African American GFR(CKD) 89 (>60 ml/min/1.73 sqM); Potassium 4.3 mmol/L (3.5-5.1); Sodium 137 mmol/L (137-145); Total Bilirubin 1.8 mg/dL (0.2-1.3); Total Protein 7.2 g/dL (6.3-8.2)
[2024-08-18 11:00] LABS: Appearance,Urine Clear (Clear); Bilirubin,Urine Negative (Negative); Blood,Urine Negative (Negative); Color,Urine Colorless; Glucose,Urine (UA) Negative (Negative); Ketones,Urine Negative (Negative); Leukocyte Esterase,Urine Negative (Negative); Nitrite,Urine Negative (Negative); Protein,Urine Negative (Negative); Specific Gravity,Urine 1.018 (1.001-1.035); Urobilinogen,Urine <2.0 mg/dL (<2.0)
--- NOTE | 2024-08-18 11:01 | US ---
EXAMINATION TYPE: US scrotum with doppler. DATE OF EXAM: 08/18/2024 COMPARISON: NONE CLINICAL INDICATION: Male, 43 years old with history of eval for right testicular torsion; rt testicl e pain, pt states lt testicle feels like its up in his stomach TECHNIQUE: Grayscale, color Doppler and spectral Doppler imaging of the scrotum. FINDINGS: EXAM MEASUREMENTS: TESTICLES: Right Testicle: 3.0x1.5x2.6 cm Calcifications seen within rt testicle, Largest: 1.4mm Left Testicle: 2.9x1.4x2.3 cm Multiple tiny calcifications seen within Lt testicle EPIDIDYMIS HEAD: Right Epididymis: 0.7x0.5x0.6 cm Left Epididymis: 0.7x0.5x0.6 cm Doppler performed to assess for testicular vascularity; slightly minimal bilateral color flow, spectral waveforms are seen. Presence of hydroceles: minimal Presence of varicoceles: None IMPRESSION: 1. No evidence for acute process. 2. No evidence for intratesticular mass or evidence for testicular torsion. 3. Bilateral testicular microlithiasis. [facility], , 08/18/2024 10:58 AM
--- NOTE | 2024-08-18 12:07 | CT ---
EXAMINATION TYPE: CT abdomen pelvis wo con CT DLP: 631.4 mGycm, Automated exposure control for dose reduction was used. DATE OF EXAM: 08/18/2024 11:59 AM COMPARISON: CT pelvis 06/04/2024 CLINICAL INDICATION:Male, 43 years old with history of lower abd/right flank pain with right testicle ; right flank pain and right hand testicular pain TECHNIQUE: Standard CT of the abdomen and pelvis without IV or oral contrast. Lack of IV or oral co ntrast limits evaluation of solid and hollow organ viscera. Coronal and sagittal reformats were perfo rmed. FINDINGS: LOWER CHEST: Unremarkable noncontrast appearance ABDOMEN LIVER: Unremarkable noncontrast appearance GALLBLADDER AND BILE DUCTS: Unremarkable noncontrast appearance PANCREAS: Unremarkable noncontrast appearance SPLEEN: Unremarkable noncontrast appearance ADRENAL GLANDS: Unremarkable noncontrast appearance. KIDNEYS AND URETERS: No evidence of hydronephrosis or renal calculus. Nonspecific minimal bilateral p erinephric fat stranding. PELVIS BLADDER: Unremarkable REPRODUCTIVE: Unremarkable. ABDOMEN & PELVIS STOMACH AND BOWEL: Stomach and duodenum are unremarkable. No focal bowel wall thickening or surroundi ng inflammatory changes. The appendix is not definitely identified however there is no significant in flammatory changes within the right lower quadrant. No evidence of bowel obstruction. PERITONEUM: No evidence of pneumoperitoneum or free fluid. VASCULATURE: No evidence of aortic aneurysm. Few pelvic phleboliths. MUSCULOSKELETAL: No acute osseous abnormalities LYMPH NODES: No gross evidence for lymphadenopathy. SOFT TISSUE/ABDOMINAL WALL: Small left fat filled inguinal hernia with bowel approaching its opening. IMPRESSION: 1. No CT evidence for acute abdominal/pelvic process within limitations of a noncontrast exam. 2. Small fat filled left inguinal hernia with bowel approaching its opening. [facility], , 08/18/2024 12:05 PM
--- NOTE | 2024-08-18 13:17 | ED ---
General Adult HPI - General Chief complaint: Urogenital Stated complaint: swollen testical, pain Time Seen by Provider: 08/18/24 10:10 Source: patient, RN notes reviewed, old records reviewed Mode of arrival: ambulatory Limitations: no limitations - History of Present Illness Initial comments: Patient is a 43-year-old male who presents emergency department with onset of right testicular pain. States it started this morning. States he noticed some swelling around the right testicle as well. Described as 10 out of 10 pain. Did not subside which is why presents for further evaluation. No obvious injury. Does have a history of an inguinal hernia on the left with no complications. States the pain does radiate up into his lower abdomen around his right flank. No hematuria. No concern for STDs. No nausea or vomiting. No other symptoms. Presents for further evaluation at this time. - Related Data Home Medications Medication Instructions Recorded Confirmed Adalimumab [Humira Pen 40 mg SQ Q14D 09/21/21 11/09/21 Crohn's-Uc-Hs] Lisdexamfetamine Dimesylate 50 mg PO QAM 09/21/21 11/09/21 [Vyvanse] Testosterone Cypionate 400 mg IM Q14D 09/21/21 11/09/21 [Depo-Testosterone] Lecithin Oil 1 dose PO DIRECTED 11/07/21 11/09/21 [place]-3/Dha/Epa/Fish Oil [Fish Oil 1 each PO DAILY 11/07/21 11/09/21 1,000 mg Softgel] Saw [place] (Unknown Dose) 1 dose PO DIRECTED 11/07/21 11/09/21 Previous Rx's Medication Instructions Recorded Cyclobenzaprine [Flexeril] 10 mg PO TID PRN 5 Days #15 tab 08/18/24 Doxycycline Hyclate [Doryx] 80 mg PO BID 14 Days #28 tab 08/18/24 Allergies Allergy/AdvReac Type Severity Reaction Status Date / Time mesalamine Allergy Rash/Hives Verified 08/18/24 09:56 niacin Allergy Rash/Hives Verified 08/18/24 09:56 Review of Systems ROS Statement: Those systems with pertinent positive or pertinent negative responses have been documented in the HPI. Review of Systems: CONST: Denies fever EYES: Denies blurry vision ENT: Denies nasal congestion C/V: Denies Chest pain RESP: Denies shortness of breath GI: Denies abdominal pain : Endorses right testicular pain SKIN: Denies rash. MSK: Denies joint pain. NEURO: Denies headache ROS Other: All systems not noted in ROS Statement are negative. Past Medical History Past Medical History: Hypertension Additional Past Medical History / Comment(s): ULCERATIVE COLITIS History of Any Multi-Drug Resistant Organisms: None Reported Past Surgical History: Orthopedic Surgery Additional Past Surgical History / Comment(s): left shoulder surgery. ORIF LT ANKLE. COLONOSCOPY Past Anesthesia/Blood Transfusion Reactions: No Reported Reaction Past Psychological History: ADD/ADHD Smoking Status: Never smoker Past Alcohol Use History: Occasional Past Drug Use History: None Reported - Past Family History Mother Family Medical History: No Reported History General Exam - General Exam Comments Initial Comments: General: Appears in no acute distress. HEAD: Normal with no signs of head trauma. EYES: EOMI ENT: Hearing grossly intact, normal oropharynx. RESPIRATORY: Clear breath sounds bilaterally. No wheezes, rales, or rhonchi. C/V: Regular rate and rhythm. S1 and S2 auscultated, no edema, peripheral pulses 2+ and intact throughout ABD: Abdomen soft, nondistended. Mildly tender to palpation suprapubic and right lower quadrant near the flank. Testicular exam relatively unremarkable. Tenderness of the testicle but no obvious edema or swelling. No obvious mass. EXT: No obvious deformity. SKIN: No rashes or lesions observed on exposed skin. NEURO: Alert and oriented x 4. Limitations: no limitations Course Vital Signs 08/18/24 08/18/24 09:53 13:44 Temperature 97.8 F Pulse Rate 86 84 Respiratory 17 20 Rate Blood Pressure 139/84 134/84 O2 Sat by Pulse 97 97 Oximetry Medical Decision Making - Medical Decision Making Was pt. sent in by a medical professional or institution (, PA, ONLINE MARKETING SPECIALIST, urgent care, hospital, or care home...) When possible be specific @ -No Did you speak to anyone other than the patient for history (EMS, parent, family, police, friend...)? What history was obtained from this source @ -No Did you review nursing and triage notes (agree or disagree)? Why? @ -I reviewed and agree with nursing and triage notes Were old charts reviewed (outside hosp., previous admission, EMS record, old EKG, old radiological studies, urgent care reports/EKG's, care home records)? Report findings @ -No old charts were reviewed Differential Diagnosis (chest pain, altered mental status, abdominal pain women, abdominal pain men, vaginal bleeding, weakness, fever, dyspnea, syncope, headache, dizziness, GI bleed, back pain, seizure, CVA, palpatations, mental health, musculoskeletal)? @ -Testicular torsion, epididymitis, renal stone. This list is not all inclusive. EKG interpreted by me (3pts min.). @ -None done X-rays interpreted by me (1pt min.). @ -None done CT interpreted by me (1pt min.). @ -CT abdomen pelvis negative for any obvious acute process. U/S interpreted by me (1pt. min.). @ -Ultrasound of the scrotum negative for any obvious acute process. What testing was considered but not performed or refused? (CT, X-rays, U/S, labs)? Why? @ -None What meds were considered but not given or refused? Why? @ -None Did you discuss the management of the patient with other professionals (professionals i.e. , PA, ONLINE MARKETING SPECIALIST, lab, RT, psych nurse, social services manager, life scientist, teacher, financial aid officer, correctional case records supervisor)? Give summary @ -Discussed the case with Dr. Okeefe who was in agreement with discharge for follow-up and treatment for epididymitis. Agrees it is unlikely that patient is having right repeated episode of testicular torsion. Was smoking cessation discussed for >3mins.? @ -No Was critical care preformed (if so, how long)? @ -No Were there social determinants of health that impacted care today? How? (Homelessness, low income, unemployed, alcoholism, drug addiction, transportation, low edu. Level, literacy, decrease access to med. care, fpc, rehab)? @ -No Was there de-escalation of care discussed even if they declined (Discuss DNR or withdrawal of care, Hospice)? DNR status @ -No What co-morbidities impacted this encounter? (DM, HTN, Smoking, COPD, CAD, Cancer, CVA, ARF, Chemo, Hep., AIDS, mental health diagnosis, sleep apnea, morbid obesity)? @ -None Was patient admitted / discharged? Hospital course, mention meds given and route, prescriptions, significant lab abnormalities, going to OR and other pertinent info. @ -Presents emergency department for sudden onset right testicular pain. We will evaluate patient with abdominal labs, ultrasound of the scrotum. Patient was in agreement this plan. Exam relatively unremarkable. Some tenderness but no evidence of skin changes or swelling. Vital signs are within acceptable limits. He will be given IV analgesia medications, fluids. Patient was in agreement this plan. Ultrasound shows no evidence of torsion. Laboratory studies are all within acceptable limits. On reevaluation, I did recommend CT imaging due to the lower abdominal pain as well and he was in agreement this plan. He expressed understanding of the workup thus far. CT imaging obtained and showed no obvious acute process. On reevaluation, patient states that when he went to the bathroom the pain occurred again. States that the testicle did retract up into his body and he started having the pain again. I did speak regarding this as well as the overal l case with Dr. Okeefe who agrees it is unlikely to be torsion and can follow-up outpatient. Patient be symptomatically treated with epididymitis. Patient was in agreement this plan. Patient given a dose of Rocephin prior to discharge. I will provide the patient with a prescription for doxycycline, Tylenol 3 starter pack. I instructed the patient to follow up with their PCP in the next 1-3 days. I provided contact information for follow up with urology. I explained that the patient should return to the emergency department if they experience any worsening symptoms. Strict return precautions were discussed with the patient. The patient expressed understanding of these instructions. I an swered all questions that the patient had. The patient was discharged home in good condition with their prescriptions and follow up information. Undiagnosed new problem with uncertain prognosis? @ -No Drug Therapy requiring intensive monitoring for toxicity (Heparin, Nitro, Insulin, Cardizem)? @ -No Were any procedures done? @ -No Diagnosis/symptom? @ -Testicular pain, epididymitis Acute, or Chronic, or Acute on Chronic? @ -Acute Uncomplicated (without systemic symptoms) or Complicated (systemic symptoms)? @ -Uncomplicated Side effects of treatment? @ -No Exacerbation, Progression, or Severe Exacerbation? @ -No Poses a threat to life or bodily function? How? (Chest pain, USA, ID, pneumonia, PE, COPD, DKA, ARF, appy, cholecystitis, CVA, Diverticulitis, Homicidal, Suicidal, threat to staff... and all critical care pts) @ -Unlikely at this time - Lab Data Result diagrams: 08/18/24 10:28 08/18/24 10:36 Lab Results 08/18/24 08/18/24 08/18/24 Range/Units 10:28 10:36 10:36 WBC 7.29 (4.50-10.00) 10*3/uL RBC 6.03 H (4.40-5.60) 10*6/uL Hgb 18.9 H (13.0-17.0) g/dL Hct 52.1 H (39.6-50.0) % MCV 86.4 (80.0-97.0) fL MCH 31.3 (27.0-32.0) pg MCHC 36.3 (32.0-37.0) g/dL Plt Count 230 (140-440) 10*3/uL MPV 9.9 (9.5-12.2) fL Immature Gran % (Auto) 0.3 % Neutrophils % 60.7 % Lymphocytes % 27.7 % Monocytes % 9.1 % Eosinophils % 1.5 % Basophils % 0.7 % Immature Gran # 0.02 (0.00-0.04) 10*3/uL Neutrophils # 4.43 (1.80-7.70) 10*3/uL Lymphocytes # 2.02 (0.90-5.00) 10*3/uL Monocytes # 0.66 (0.20-1.00) 10*3/uL Eosinophils # 0.11 (0.04-0.35) 10*3/uL Basophils # 0.05 (0.00-0.10) 10*3/uL PT 11.8 (10.0-12.5) sec INR 1.1 (<1.2) APTT 24.9 (22.0-30.0) sec Sodium 137 (137-145) mmol/L Potassium 4.3 (3.5-5.1) mmol/L Chloride 103 (98-107) mmol/L Carbon Dioxide 27 (22-30) mmol/L Anion Gap 7 mmol/L BUN 23 H (9-20) mg/dL Creatinine 1.04 (0.66-1.25) mg/dL Est GFR (CKD-EPI)AfAm >90 (>60 ml/min/1.73 sqM) Est GFR (CKD-EPI)NonAf 89 (>60 ml/min/1.73 sqM) Glucose 102 H (74-99) mg/dL Plasma Lactic Acid Jeremi (0.7-2.0) mmol/L Calcium 9.3 (8.4-10.2) mg/dL Total Bilirubin 1.8 H (0.2-1.3) mg/dL AST 59 (17-59) U/L ALT 70 H (4-49) U/L Alkaline Phosphatase 53 (38-126) U/L Total Protein 7.2 (6.3-8.2) g/dL Albumin 4.3 (3.5-5.0) g/dL Urine Color Urine Appearance (Clear) Urine pH (5.0-8.0) Ur Specific [place] (1.001-1.035) Urine Protein (Negative) Urine Glucose (UA) (Negative) Urine Ketones (Negative) Urine Blood (Negative) Urine Nitrite (Negative) Urine Bilirubin (Negative) Urine Urobilinogen (<2.0) mg/dL Ur Leukocyte Esterase (Negative) 08/18/24 08/18/24 Range/Units 10:36 10:53 WBC (4.50-10.00) 10*3/uL RBC (4.40-5.60) 10*6/uL Hgb (13.0-17.0) g/dL Hct (39.6-50.0) % MCV (80.0-97.0) fL MCH (27.0-32.0) pg MCHC (32.0-37.0) g/dL Plt Count (140-440) 10*3/uL MPV (9.5-12.2) fL Immature Gran % (Auto) % Neutrophils % % Lymphocytes % % Monocytes % % Eosinophils % % Basophils % % Immature Gran # (0.00-0.04) 10*3/uL Neutrophils # (1.80-7.70) 10*3/uL Lymphocytes # (0.90-5.00) 10*3/uL Monocytes # (0.20-1.00) 10*3/uL Eosinophils # (0.04-0.35) 10*3/uL Basophils # (0.00-0.10) 10*3/uL PT (10.0-12.5) sec INR (<1.2) APTT (22.0-30.0) sec Sodium (137-145) mmol/L Potassium (3.5-5.1) mmol/L Chloride (98-107) mmol/L Carbon Dioxide (22-30) mmol/L Anion Gap mmol/L BUN (9-20) mg/dL Creatinine (0.66-1.25) mg/dL Est GFR (CKD-EPI)AfAm (>60 ml/min/1.73 sqM) Est GFR (CKD-EPI)NonAf (>60 ml/min/1.73 sqM) Glucose (74-99) mg/dL Plasma Lactic Acid Jeremi 1.0 (0.7-2.0) mmol/L Calcium (8.4-10.2) mg/dL Total Bilirubin (0.2-1.3) mg/dL AST (17-59) U/L ALT (4-49) U/L Alkaline Phosphatase (38-126) U/L Total Protein (6.3-8.2) g/dL Albumin (3.5-5.0) g/dL Urine Color Colorless Urine Appearance Clear (Clear) Urine pH 6.0 (5.0-8.0) Ur Specific [place] 1.018 (1.001-1.035) Urine Protein Negative (Negative) Urine Glucose (UA) Negative (Negative) Urine Ketones Negative (Negative) Urine Blood Negative (Negative) Urine Nitrite Negative (Negative) Urine Bilirubin Negative (Negative) Urine Urobilinogen <2.0 (<2.0) mg/dL Ur Leukocyte Esterase Negative (Negative) Critical Care Time Critical Care Time: Yes Disposition Clinical Impression: Acute epididymitis Disposition: HOME SELF-CARE Condition: Good Instructions (If sedation given, give patient instructions): Epididymitis (ED), Epididymo-Orchitis (ED) Prescriptions: Doxycycline Hyclate [Doryx] 80 mg PO BID 14 Days #28 tab Cyclobenzaprine [Flexeril] 10 mg PO TID PRN 5 Days #15 tab PRN Reason: Pain Is patient prescribed a controlled substance at d/c from ED?: No Referrals: Roberto Keys MD [Primary Care Provider] - 1-2 days Julio Okeefe MD [STAFF PHYSICIAN] - 1-2 days Time of Disposition: 13:15
[2024-08-18] MEDS: ACET/COD 300 MG/30 MG STARTER PACK 6 TAB BTL PO STA (13:39)
[2024-08-18] MEDS: cefTRIAXone IN SWFI 1,000 MG/10 ML SYRINGE IVP STA (13:39)
[2024-08-18 13:45] VITALS: BP 134/84; PULSE 84; RESP 20
== END 2024-08-18 13:46 | disposition home or self-care (01) ==
LOC: EC 09:52
DX: N45.1 Epididymitis (principal); Z88.8 Allergy status to other drugs, medicaments and biological substances; Z88.3 Allergy status to other anti-infective agents
CPT/HCPCS: 36415; 80053; 83605; 85025; 85610; 85730; 81003; 93975; 76870; 74176; 99284; 96374; 96375 ×2; 96376; 96361; J2270; J2405; J0696